=== PATIENT | male | born 1935 | race American Indian/Alaskan Native ===

== ENCOUNTER 2017-11-13 09:49 | Outpatient (CLI) | payer MEDICARE ==
--- NOTE | 2017-11-13 10:56 | XRay Report ---
X-RAY LEFT ELBOW THREE VIEWS: 11/13/17 09:49:00 CLINICAL: Pain. FINDINGS: Left elbow pain. No fracture or dislocation. The radiohumeral and ulnohumeral joints are normal. A triceps insertion enthesophyte appears to be fractured. Mild overlying soft tissue swelling. IMPRESSION: Triceps enthesopathy with fracture of the enthesophyte.
== END 2017-11-13 09:50 | disposition home or self-care (01) ==
LOC: SPVIMAG 09:49
PROVIDERS: ATTEND Orthopaedic Surgery Sports Medicine
DX: M77.8 Other enthesopathies, not elsewhere classified (principal)